=== PATIENT | female | born 1955 | race Caucasian/White ===

== ENCOUNTER 2017-03-15 15:08 | Emergency (ER) | payer SELFPAY ==
[~2017-03-15] VITALS: Ht 172.7 cm; Wt 98.9 kg
--- NOTE | 2017-03-15 15:15 | NUR ---
[id number], [id number] FROM [address]: FACE PAIN/ABRASIONS S/P TRIP AND FALL. DENIES KO. SKIN IS WARM AND DRY. RESP IS EVEN AND UNLABORED WITH NAD NOTED. AWAITING MD FOR EVAL.
[2017-03-15] MEDS ORDERED: IBUPROFEN 600 MG TABLET PO ONE ×2 (16:00)
[2017-03-15] MEDS ORDERED: LIDOCAINE 2% JEL 5 ML TUBE MC ONE (18:30)
[2017-03-15 18:49] VITALS: BP 145/85
== END 2017-03-15 18:55 | disposition home or self-care (01) ==
LOC: ER 15:09
DX: S02.2XXA Fracture of nasal bones, initial encounter for closed fracture (principal); F41.9 Anxiety disorder, unspecified; M25.561 Pain in right knee; M25.562 Pain in left knee; M79.641 Pain in right hand; M79.642 Pain in left hand; Z88.0 Allergy status to penicillin; F32.9 Major depressive disorder, single episode, unspecified; Z98.890 Other specified postprocedural states; W01.198A Fall on same level from slipping, tripping and stumbling with subsequent striking against other object, initial encounter; Y93.01 Activity, walking, marching and hiking; Y92.89 Other specified places as the place of occurrence of the external cause; Y99.8 Other external cause status
CPT/HCPCS: 70450-TC; 70486-TC; 73130-TC; 73560-TC; A4606; Z7610